=== PATIENT | female | born 1995 | race Two or more races ===

== ENCOUNTER 2017-01-09 06:56 | Emergency (ER) | payer OTHER ==
[2017-01-09 07:27] VITALS: BMI 27.4
[2017-01-09] MEDS ORDERED: FAMOTIDINE 20 MG/50 ML IVPB 50 ML IVPB ONE ×2 (07:34→07:41)
[2017-01-09] MEDS ORDERED: MAG HYDROX/AL HYDROX/SIMETH 355 ML ORAL.SUSP PO ONE (07:34)
[2017-01-09] MEDS ORDERED: MAG HYDROX/AL HYDROX/SIMETH 30 ML UNIT-DOSE CUP ONE (07:40)
--- NOTE | 2017-01-09 07:54 | PDOC ---
History of Present Illness - General Chief Complaint: Pain Stated Complaint: ABDOMINAL PAIN Time Seen by Provider: 01/09/17 07:28 History Source: Patient - History of Present Illness Abdominal Pain Onset Location: reports: other (upper abd) Pain Radiation: reports: no radiation Past History - Past Medical History Allergies/Adverse Reactions: Allergies Allergy/AdvReac Type Severity Reaction Status Date / Time No Known Allergies Allergy Verified 01/09/17 07:22 Home Medications: Ambulatory Orders Famotidine [Pepcid] 20 mg PO BID #14 tablet 01/09/17 Mag Hydrox/Al Hydrox/Simeth [MAALOX *SUSPENSION* -] 30 ml PO Q6H #1 bottle 01/09 Other medical history: Denies - Immunization History Immunization Up to Date: Yes - Psycho/Social/Smoking Cessation Hx Suicidal Ideation: No Smoking History: Never smoked Have you smoked in the past 12 months: No Information on smoking cessation initiated: No Hx Alcohol Use: No Drug/Substance Use Hx: No Substance Use Type: None Review of Systems - Review of Systems Constitutional: No: Chills, Fever Respiratory: No: Shortness of Breath Cardiac (ROS): No: Chest Pain ABD/GI: Yes: Nausea, Vomiting. No: Constipated, Diarrhea : No: Dysuria *Physical Exam - Vital Signs Last Vital Signs Temp Pulse Resp BP Pulse Ox 98.8 F 126 H 16 135/89 100 01/09/17 07:22 01/09/17 07:22 01/09/17 07:22 01/09/17 07:22 01/09/17 07:22 - Physical Exam General Appearance: Yes: Appropriately Dressed. No: Apparent Distress HEENT: positive: Normal Voice Neck: positive: Supple Respiratory/Chest: positive: Lungs Clear, Normal Breath Sounds. negative: Respiratory Distress Cardiovascular: positive: Regular Rate, S1, S2 Gastrointestinal/Abdominal: positive: Tender (to epigastrium, neg murpheys, no CVAT), Soft ED Treatment Course - LABORATORY CBC & Chemistry Diagram: 01/09/17 07:55 01/09/17 07:55 Medical Decision Making - Medical Decision Making 01/09/17 07:34 22-year-old obese female with no past medical history here with abdominal pain. Patient reports upper abdominal pain 1 month intermittent, sharp, worse when supine and with po intake. Patient complains of nausea, vomiting on 1 occasion and possibly 1 e/o loose stool this a.m. No bright red blood per rectum, melena , fever or chills. No history of kidney stones or gallstones. Patient states she is seeking medical care for the first time today because she noticed that abdomen is now bloated. Denies h/o similar episodes in past See exam Upper abd pain Possibly gastritis given HPI, less likely acute darcy or pancreatitis given duration of symptoms Tachy to 126 in ED w/ unremarkable exam otherwise -GI cocktail -IVF -labs -reassess 01/09/17 09:21 01/09/17 09:30 01/09/17 10:54 Heart rate 113 status post IV fluid. Patient reports feeling significantly better with meds. No dizziness, weakness, palpitations. CP or SOB. Do not suspect PE at this time given duration of symptoms for over a month. Will dc to maintain adequate hydration and take meds as directed. Reasons to return discussed with patient, otherwise, follow-up with GI and PMD 01/09/17 10:56 *DC/Admit/Observation/Transfer Diagnosis at time of Disposition: Epigastric pain - Discharge Dispostion Disposition: HOME Condition at time of disposition: Improved - Prescriptions Prescriptions: Mag Hydrox/Al Hydrox/Simeth [MAALOX *SUSPENSION* -] 30 ml PO Q6H #1 bottle Famotidine [Pepcid] 20 mg PO BID #14 tablet - Referrals Referrals: Don Minaya MD [Staff Physician] - - Patient Instructions Printed Discharge Instructions: Gastritis Additional Instructions: Maintain adequate hydration and take medications as prescribed. Please follow-up with Dr. Minaya of GI Please follow-up with your PMD
[2017-01-09 08:09] LABS: BASOPHIL 0.5 % (0-2.0); MEAN PLT VOLUME 8.8 fl (7.5-11.1)
[2017-01-09 08:14] LABS: EOSINOPHIL 0.5 % (0-4.5); MCH 25.4 pg (25.7-33.7); MCHC 32.4 g/dl (32.0-36.0); MEAN CELL VOLUME 78.4 fl (80-96); NEUTROPHILS 70.2 % (42.8-82.8); PLATELET COUNT 307 K/MM3 (134-434); RDW 14.8 % (11.6-15.6); WHITE BLOOD COUNT 11.8 K/mm3 (4.0-10.0)
[2017-01-09 08:35] LABS: ALBUMIN 4.1 g/dl (3.4-5.0); ALK PHOS 106 U/L (45-117); ANION GAP 8 (8-16); BILIRUBIN,TOTAL 0.6 mg/dL (0.2-1.0); CALCIUM 9.5 mg/dL (8.5-10.1); CO2 27 mmol/L (21-32); CREATININE 0.7 mg/dL (0.55-1.02); GLUCOSE,RANDOM 103 mg/dL (74-106); SGOT/AST 40 U/L (15-37); SGPT/ALT 77 U/L (12-78); TOT PROT 8.1 g/dl (6.4-8.2)
[2017-01-09] MEDS ORDERED: RANITIDINE HCL 150 MG TABLET (FP) PO ONE (08:59)
[2017-01-09] MEDS ORDERED: RANITIDINE HCL 150 MG TABLET (FP) ONE (09:04)
[2017-01-09] MEDS ORDERED: SODIUM CHLORIDE 1,000 ML IV STA (09:18)
[2017-01-09 10:56] VITALS: BP 121/87; PULSE 113; TEMP 98.3
== END 2017-01-09 11:03 | disposition home or self-care (01) ==
LOC: JER 06:56
PROC: 3E0337Z Introduction of Electrolytic and Water Balance Substance into Peripheral Vein, Percutaneous Approach (ICD-10-PCS; principal; 2017-01-09)
DX: K29.60 Other gastritis without bleeding (principal)
CPT/HCPCS: 36415; 80053; 83690; 84703; 85025; 99282-25

== ENCOUNTER 2022-04-25 06:01 | Inpatient (IN) | payer OTHER ==
[~2022-04-25 06:01] MED LIST: BUPIVACAINE HCL/PF 0.25% (2.5MG/ML) 10 ML VIAL IJ ONE
[2022-04-25] MEDS ORDERED: ACETAMINOPHEN 1000 MG/100 ML BAG IVPB ONE (07:59)
[2022-04-25] MEDS ORDERED: ACETAMINOPHEN INJECTION 100 ML IVPB ONE (08:00)
[2022-04-25 08:54] LABS: BASO % 0.5 % (0-2.0); EOS % 0.4 % (0-4.5); HEMOGLOBIN 11.8 GM/dL (10.7-15.3); MCH 23.9 pg (25.7-33.7); MCHC 31.2 g/dl (32.0-36.0); MEAN CELL VOLUME 76.5 fl (80-96); MEAN PLT VOLUME 9.1 fl (7.5-11.1); MONO % 3.8 % (3.8-10.2); NEUT % 71.3 % (42.8-82.8); PLATELET COUNT 338 10^3/uL (134-434); RBC 4.97 M/mm3 (3.60-5.2); RDW 14.6 % (11.6-15.6); WHITE BLOOD COUNT 14.8 K/mm3 (4.0-10.0)
[2022-04-25 09:25] LABS: ALBUMIN 4.3 g/dl (3.4-5.0); BLOOD UREA NITROGEN 11.1 mg/dL (7-18); CALCIUM 9.6 mg/dL (8.5-10.1)
[2022-04-25 09:27] LABS: CREATININE 0.7 mg/dL (0.55-1.3)
[2022-04-25 09:29] LABS: BILIRUBIN,TOTAL 0.5 mg/dL (0.2-1); TOT PROT 8.4 g/dl (6.4-8.2)
[2022-04-25 09:39] LABS: URINE APPEARANCE CLEAR; URINE BILIRUBIN NEGATIVE (NEGATIVE); URINE COLOR YELLOW; URINE GLUCOSE (UA) NEGATIVE (NEGATIVE); URINE KETONE NEGATIVE (NEGATIVE); URINE LEUK ESTERASE NEGATIVE (NEGATIVE); URINE NITRITE NEGATIVE (NEGATIVE); URINE PROTEIN TRACE (NEGATIVE); URINE UROBILINOGEN 0.2 mg/dL (0.2-1.0)
[2022-04-25 09:42] LABS: HCG,QUALITATIVE URINE Negative
[2022-04-25] MEDS ORDERED: LACTATED RINGERS SOLUTION 1,000 ML/1,000 ML INFUS.BAG IV SCH (10:15)
[2022-04-25] MEDS ORDERED: KETOROLAC TROMETHAMINE 15 MG/ML VIAL IVPUSH PRN (10:32)
[2022-04-25] MEDS ORDERED: ONDANSETRON 4 MG/2 ML VIAL IVPUSH PRN ×2 (10:34→19:33)
[2022-04-25] MEDS ORDERED: LACTATED RINGERS SOLUTION 1,000 ML IV SCH (10:45)
[2022-04-25] MEDS ORDERED: BUPIVACAINE HCL/PF 0.25% (2.5MG/ML) 10 ML VIAL ONE (12:42)
[2022-04-25] MEDS ORDERED: IBUPROFEN 800 MG/8 ML IJ IVPB PRN ×2 (12:56→19:33)
[2022-04-25] MEDS ORDERED: LIDOCAINE HCL/PF 2% SDV 5ML VIAL ONE (13:13)
[2022-04-25] MEDS ORDERED: PROPOFOL 40 ML ONE (13:14)
[2022-04-25] MEDS ORDERED: FENTANYL CITRATE/PF 50 MCG/ML VIAL ONE ×4 (13:14→15:11)
[2022-04-25] MEDS ORDERED: MIDAZOLAM HCL 2 MG/2 ML SINGLE DOSE VIAL ONE (13:14)
[2022-04-25] MEDS ORDERED: ROCURONIUM BROMIDE 50 MG/5 ML SYRINGE ONE ×2 (13:14→14:48)
[2022-04-25] MEDS ORDERED: ceFAZolin SODIUM 1 GM VIAL ONE (13:54)
[2022-04-25] MEDS ORDERED: ceFAZolin SODIUM 1 GM VIAL IVPB ONE (13:56)
[2022-04-25] MEDS ORDERED: ONDANSETRON 4 MG/2 ML VIAL ONE (14:18)
[2022-04-25] MEDS ORDERED: DEXAMETHASONE SOD PHOSPHATE 4 MG/1 ML VIAL ONE (14:18)
[2022-04-25] MEDS ORDERED: HYDROmorphone HCl 2 MG/ML VIAL ONE (15:56)
[2022-04-25] MEDS ORDERED: GLYCOPYRROLATE 0.2 MG/1 ML VIAL ONE (17:35)
[2022-04-25] MEDS ORDERED: NEOSTIGMINE METHYLSULFATE 0.5 MG/1 ML - 10 ML MDV ONE (17:35)
[2022-04-25] MEDS ORDERED: PIPERACILLIN/TAZOB 3.375 GM 3.375 GM in DEXTROSE 5%-WATER - 50 ML IVPB ONE (17:59)
[2022-04-25] MEDS ORDERED: ACETAMINOPHEN 1000 MG/100 ML BAG IVPB PRN (18:00)
[2022-04-25] MEDS ORDERED: KETOROLAC TROMETHAMINE 30 MG/1 ML VIAL IVPUSH PRN (18:02)
[2022-04-25] MEDS ORDERED: HYDROmorphone *PCA* 10MG/50ML DISP.SYRIN PCA SCH (18:15)
[2022-04-25] MEDS: SODIUM CHLORIDE 1,000 ML IV SCH (19:00)
[2022-04-25] MEDS ORDERED: HYDROmorphone *PCA* 10MG/50ML DISP.SYRIN PCA ONE ×2 (20:33)
[2022-04-25] MEDS: FAMOTIDINE 20 MG/50 ML IVPB 20 MG/50 ML MG IVPB SCH (21:52)
[2022-04-25] MEDS: HEPARIN NA (PORCINE) 5,000 UNITS/ML 1ML VIAL SQ SCH (21:52)
[2022-04-25 23:34] VITALS: BMI 36.7
[2022-04-26] MEDS: PIPERACILLIN/TAZOB 3.375 GM 3.375 GM in DEXTROSE 5%-WATER - 50 ML IVPB SCH ×2 (03:10→11:26)
[2022-04-26] MEDS: HEPARIN NA (PORCINE) 5,000 UNITS/ML 1ML VIAL SQ SCH ×3 (06:33→21:57)
[2022-04-26 10:06] LABS: BASO % 0.3 % (0-2.0); HEMATOCRIT 28.9 % (32.4-45.2); HEMOGLOBIN 8.8 GM/dL (10.7-15.3); MCH 23.5 pg (25.7-33.7); MCHC 30.6 g/dl (32.0-36.0); MEAN CELL VOLUME 76.8 fl (80-96); MEAN PLT VOLUME 8.8 fl (7.5-11.1); MONO % 8.5 % (3.8-10.2); NEUT % 70.2 % (42.8-82.8); PLATELET COUNT 268 10^3/uL (134-434); RBC 3.76 M/mm3 (3.60-5.2); RDW 14.7 % (11.6-15.6)
[2022-04-26 10:25] LABS: BLOOD UREA NITROGEN 9.3 mg/dL (7-18); MAGNESIUM 2.3 mg/dL (1.8-2.4)
[2022-04-26 10:28] LABS: BILIRUBIN,DIRECT 0.3 mg/dL (0.0-0.2); CREATININE 0.6 mg/dL (0.55-1.3); PHOSPHOROUS 3.4 mg/dL (2.5-4.9)
[2022-04-26 10:30] LABS: BILIRUBIN,TOTAL 0.8 mg/dL (0.2-1)
[2022-04-26 10:40] LABS: ALBUMIN 2.8 g/dl (3.4-5.0); TOT PROT 5.9 g/dl (6.4-8.2)
[2022-04-26] MEDS: FAMOTIDINE 20 MG/50 ML IVPB 20 MG/50 ML MG IVPB SCH ×2 (11:26→21:57)
[2022-04-26] MEDS ORDERED: oxyCODONE HCL 5 MG TABLET PO PRN (11:27)
[2022-04-26] MEDS: SODIUM CHLORIDE 1,000 ML IV SCH (16:59)
[2022-04-26] MEDS: DOCUSATE SODIUM 100 MG CAPSULE (FP) PO SCH (21:57)
[2022-04-27] MEDS: HEPARIN NA (PORCINE) 5,000 UNITS/ML 1ML VIAL SQ SCH ×3 (07:03→21:47)
[2022-04-27] MEDS: FAMOTIDINE 20 MG/50 ML IVPB 20 MG/50 ML MG IVPB SCH ×2 (09:26→21:35)
[2022-04-27] MEDS: oxyCODONE HCL 5 MG TABLET PO PRN ×3 (09:29→21:35)
[2022-04-27] MEDS ORDERED: SIMETHICONE 80 MG TAB.CHEW (FP) PO PRN (11:10)
[2022-04-27 12:50] LABS: BASO % 0.5 % (0-2.0); EOS % 0.6 % (0-4.5); HEMATOCRIT 31.1 % (32.4-45.2); HEMOGLOBIN 9.7 GM/dL (10.7-15.3); LYMPH % 31.3 % (8-40); MCH 23.7 pg (25.7-33.7); MCHC 31.1 g/dl (32.0-36.0); MEAN CELL VOLUME 76.2 fl (80-96); MEAN PLT VOLUME 8.7 fl (7.5-11.1); MONO % 6.6 % (3.8-10.2); PLATELET COUNT 258 10^3/uL (134-434); RBC 4.09 M/mm3 (3.60-5.2); RDW 14.6 % (11.6-15.6); WHITE BLOOD COUNT 14.9 K/mm3 (4.0-10.0)
[2022-04-27 13:09] LABS: ALBUMIN 3.3 g/dl (3.4-5.0); BLOOD UREA NITROGEN 5.2 mg/dL (7-18); CALCIUM 8.6 mg/dL (8.5-10.1); MAGNESIUM 2.3 mg/dL (1.8-2.4)
[2022-04-27 13:12] LABS: CREATININE 0.5 mg/dL (0.55-1.3)
[2022-04-27 13:14] LABS: BILIRUBIN,TOTAL 0.6 mg/dL (0.2-1); TOT PROT 6.8 g/dl (6.4-8.2)
[2022-04-27] MEDS ORDERED: POTASSIUM CHLORIDE TABS 20 MEQ TABLET.ER (FP) PO ONE (15:31)
[2022-04-27] MEDS: CEFAZOLIN 1 GM in DEXTROSE 5%-WATER - 50 ML IVPB SCH (16:33)
[2022-04-27] MEDS: DOCUSATE SODIUM 100 MG CAPSULE (FP) PO SCH (21:34)
[2022-04-27] MEDS: SODIUM CHLORIDE 1,000 ML IV SCH (21:36)
[2022-04-28] MEDS: CEFAZOLIN 1 GM in DEXTROSE 5%-WATER - 50 ML IVPB SCH ×3 (00:28→17:18)
[2022-04-28] MEDS: SODIUM CHLORIDE 1,000 ML IV SCH ×2 (00:31→18:31)
[2022-04-28] MEDS: HEPARIN NA (PORCINE) 5,000 UNITS/ML 1ML VIAL SQ SCH ×3 (06:27→22:22)
[2022-04-28] MEDS: FAMOTIDINE 20 MG/50 ML IVPB 20 MG/50 ML MG IVPB SCH ×2 (09:54→22:22)
[2022-04-28 10:10] LABS: BASO % 0.6 % (0-2.0); EOS % 0.6 % (0-4.5); HEMATOCRIT 32.5 % (32.4-45.2); HEMOGLOBIN 10.1 GM/dL (10.7-15.3); LYMPH % 21.1 % (8-40); MCH 23.8 pg (25.7-33.7); MCHC 31.2 g/dl (32.0-36.0); MEAN CELL VOLUME 76.5 fl (80-96); MEAN PLT VOLUME 8.2 fl (7.5-11.1); MONO % 5.6 % (3.8-10.2); NEUT % 72.1 % (42.8-82.8); PLATELET COUNT 278 10^3/uL (134-434); RBC 4.25 M/mm3 (3.60-5.2); RDW 14.3 % (11.6-15.6); WHITE BLOOD COUNT 13.5 K/mm3 (4.0-10.0)
[2022-04-28] MEDS ORDERED: POTASSIUM CHLORIDE TABS 20 MEQ TABLET.ER (FP) PO ONE (10:39)
[2022-04-28 10:46] LABS: ALBUMIN 3.3 g/dl (3.4-5.0); CALCIUM 8.6 mg/dL (8.5-10.1); MAGNESIUM 2.4 mg/dL (1.8-2.4)
[2022-04-28 10:47] LABS: BLOOD UREA NITROGEN 6.7 mg/dL (7-18)
[2022-04-28 10:50] LABS: CREATININE 0.6 mg/dL (0.55-1.3)
[2022-04-28] MEDS: POLYETHYLENE GLYCOL (HEALTHYLAX) 3350 17 GM PACKET PO SCH ×2 (13:47→22:22)
[2022-04-28] MEDS: oxyCODONE HCL 5 MG TABLET PO PRN (19:47)
[2022-04-28] MEDS: DOCUSATE SODIUM 100 MG CAPSULE (FP) PO SCH (22:21)
[2022-04-29] MEDS: CEFAZOLIN 1 GM in DEXTROSE 5%-WATER - 50 ML IVPB SCH ×3 (00:28→16:44)
[2022-04-29] MEDS: HEPARIN NA (PORCINE) 5,000 UNITS/ML 1ML VIAL SQ SCH ×3 (06:36→22:30)
[2022-04-29] MEDS ORDERED: SODIUM CHLORIDE 1,000 ML IV STA (09:14)
[2022-04-29] MEDS: FAMOTIDINE 20 MG/50 ML IVPB 20 MG/50 ML MG IVPB SCH ×2 (09:16→22:30)
[2022-04-29] MEDS: POLYETHYLENE GLYCOL (HEALTHYLAX) 3350 17 GM PACKET PO SCH ×2 (09:16→22:30)
[2022-04-29 11:10] LABS: BASO % 0.3 % (0-2.0); EOS % 0.5 % (0-4.5); HEMATOCRIT 32.2 % (32.4-45.2); HEMOGLOBIN 10.1 GM/dL (10.7-15.3); LYMPH % 21.8 % (8-40); MCH 24.2 pg (25.7-33.7); MCHC 31.4 g/dl (32.0-36.0); MEAN CELL VOLUME 76.9 fl (80-96); MONO % 7.2 % (3.8-10.2); NEUT % 70.2 % (42.8-82.8); PLATELET COUNT 311 10^3/uL (134-434); RBC 4.19 M/mm3 (3.60-5.2); RDW 14.7 % (11.6-15.6); WHITE BLOOD COUNT 15.7 K/mm3 (4.0-10.0)
[2022-04-29 11:44] LABS: ALBUMIN 3.1 g/dl (3.4-5.0); BLOOD UREA NITROGEN 5.6 mg/dL (7-18); CALCIUM 8.3 mg/dL (8.5-10.1)
[2022-04-29 11:47] LABS: CREATININE 0.5 mg/dL (0.55-1.3)
[2022-04-29 11:48] LABS: BILIRUBIN,TOTAL 0.9 mg/dL (0.2-1)
[2022-04-29 11:49] LABS: TOT PROT 6.6 g/dl (6.4-8.2)
[2022-04-29] MEDS: POTASSIUM CHLORIDE TABS 20 MEQ TABLET.ER (FP) PO SCH ×2 (13:33→18:27)
[2022-04-29] MEDS: DOCUSATE SODIUM 100 MG CAPSULE (FP) PO SCH (22:30)
[2022-04-30] MEDS: CEFAZOLIN 1 GM in DEXTROSE 5%-WATER - 50 ML IVPB SCH ×3 (00:13→16:30)
[2022-04-30] MEDS: HEPARIN NA (PORCINE) 5,000 UNITS/ML 1ML VIAL SQ SCH ×2 (06:23→13:34)
[2022-04-30] MEDS: FAMOTIDINE 20 MG/50 ML IVPB 20 MG/50 ML MG IVPB SCH (09:51)
[2022-04-30] MEDS: POLYETHYLENE GLYCOL (HEALTHYLAX) 3350 17 GM PACKET PO SCH (09:52)
[2022-04-30 09:55] LABS: BASO % 0.5 % (0-2.0); EOS % 1.7 % (0-4.5); HEMATOCRIT 32.3 % (32.4-45.2); MCH 23.8 pg (25.7-33.7); MCHC 30.9 g/dl (32.0-36.0); MEAN PLT VOLUME 8.5 fl (7.5-11.1); MONO % 6.9 % (3.8-10.2); NEUT % 58.9 % (42.8-82.8); PLATELET COUNT 342 10^3/uL (134-434); RDW 15.2 % (11.6-15.6); WHITE BLOOD COUNT 14.1 K/mm3 (4.0-10.0)
[2022-04-30 10:31] LABS: CALCIUM 9.2 mg/dL (8.5-10.1)
[2022-04-30 10:32] LABS: ALBUMIN 3.1 g/dl (3.4-5.0)
[2022-04-30 10:35] LABS: CREATININE 0.6 mg/dL (0.55-1.3)
[2022-04-30 10:36] LABS: TOT PROT 6.8 g/dl (6.4-8.2)
[2022-04-30 14:43] VITALS: BP 120/77; PULSE 100; RESP 20; TEMP 98.6
== END 2022-04-30 18:01 | disposition home or self-care (01) | DRG 262 ==
LOC: JER 06:01 → JERBED 10:01 → J8W 20:56
PROVIDERS: ADMIT Internal Medicine; ATTEND Nurse Practitioner Family
PROC: 0FJ44ZZ Inspection of Gallbladder, Percutaneous Endoscopic Approach (ICD-10-PCS; 2022-04-25)
PROC: 0FT40ZZ Resection of Gallbladder, Open Approach (ICD-10-PCS; principal; 2022-04-25 13:00)
DX: K80.10 Calculus of gallbladder with chronic cholecystitis without obstruction (principal); E78.5 Hyperlipidemia, unspecified; E66.9 Obesity, unspecified; Z68.36 Body mass index [BMI] 36.0-36.9, adult; R11.2 Nausea with vomiting, unspecified; G89.18 Other acute postprocedural pain; D72.829 Elevated white blood cell count, unspecified; Z53.31 Laparoscopic surgical procedure converted to open procedure
CPT/HCPCS: 36415; 74018-TC-FY; 76705-TC; 80053; 80076; 81003; 83690; 83735; 84100; 84703; 85025; 87086; 88304-TC; 93005; 93010; 94010; 94760; 97116-GP; 97161-GP; 99285-25; C9803-CS; J1644; U0003; U0005

== ENCOUNTER 2022-05-03 12:45 | Inpatient (IN) | payer OTHER ==
[~2022-05-03 12:45] MED LIST changes: -BUPIVACAINE HCL/PF 0.25% (2.5MG/ML) 10 ML VIAL IJ ONE; +PIPERACILLIN/TAZOB 3.375 GM 3.375 GM in DEXTROSE 5%-WATER - 50 ML IVPB SCH
[2022-05-03] MEDS ORDERED: SODIUM CHLORIDE 1,000 ML IV STA (13:46)
[2022-05-03] MEDS ORDERED: ACETAMINOPHEN 1000 MG/100 ML BAG IVPB ONE ×2 (13:46→20:32)
[2022-05-03] MEDS ORDERED: ACETAMINOPHEN INJECTION 100 ML IVPB ONE ×2 (13:58→21:03)
[2022-05-03 15:34] LABS: BASO % 0.4 % (0-2.0); EOS % 0.2 % (0-4.5); HEMATOCRIT 33.7 % (32.4-45.2); HEMOGLOBIN 10.5 GM/dL (10.7-15.3); LYMPH % 13.8 % (8-40); MCH 23.8 pg (25.7-33.7); MCHC 31.2 g/dl (32.0-36.0); MEAN CELL VOLUME 76.3 fl (80-96); MEAN PLT VOLUME 8.4 fl (7.5-11.1); MONO % 4.8 % (3.8-10.2); NEUT % 80.8 % (42.8-82.8); PLATELET COUNT 421 10^3/uL (134-434); RBC 4.42 M/mm3 (3.60-5.2); RDW 14.7 % (11.6-15.6); WHITE BLOOD COUNT 16.8 K/mm3 (4.0-10.0)
[2022-05-03 15:46] LABS: INR 1.1 (0.83-1.09); PROTHROMBIN TIME (PATIENT) 12.7 SEC (9.7-13.0)
[2022-05-03 15:49] LABS: ACTIVATED PTT 28.3 SECONDS (25.2-36.5)
[2022-05-03 15:50] LABS: CALCIUM 9.5 mg/dL (8.5-10.1)
[2022-05-03 15:51] LABS: ALBUMIN 3.7 g/dl (3.4-5.0); BLOOD UREA NITROGEN 7.2 mg/dL (7-18)
[2022-05-03 15:54] LABS: CREATININE 0.6 mg/dL (0.55-1.3)
[2022-05-03 15:55] LABS: BILIRUBIN,TOTAL 0.7 mg/dL (0.2-1)
[2022-05-03 15:56] LABS: TOT PROT 7.7 g/dl (6.4-8.2)
[2022-05-03] MEDS ORDERED: PIPERACILLIN/TAZOB 3.375 GM 4.5 GM in DEXTROSE 5%-WATER - 50 ML IVPB ONE (19:48)
[2022-05-03 20:06] LABS: URINE APPEARANCE CLEAR; URINE BILIRUBIN NEGATIVE (NEGATIVE); URINE COLOR RED; URINE GLUCOSE (UA) NEGATIVE (NEGATIVE); URINE KETONE NEGATIVE (NEGATIVE); URINE LEUK ESTERASE 3+ (NEGATIVE); URINE NITRITE NEGATIVE (NEGATIVE); URINE PROTEIN 1+ (NEGATIVE); URINE UROBILINOGEN 0.2 mg/dL (0.2-1.0)
[2022-05-03] MEDS: SODIUM CHLORIDE 1,000 ML IV SCH (20:18)
[2022-05-03] MEDS ORDERED: PIPERACILLIN/TAZOB 4.5 GM 4.5 GM/100 ML BAG IVPB ONE (20:22)
[2022-05-03] MEDS ORDERED: SODIUM CHLORIDE 1,000 ML IV SCH (20:45)
[2022-05-03 23:32] LABS: EPI CELLS 16.8 /uL (0-25.1); URINE RBC 173.2 /uL (0-23.9); URINE WBC 244.4 /uL (0-25.8)
[2022-05-03 23:33] LABS: HYALINE CASTS 9.04 /uL (0-3.1); URINE BACTERIA 3919.2 /uL (0-1359)
[2022-05-04] MEDS ORDERED: ACETAMINOPHEN INJECTION 100 ML IVPB ONE ×3 (00:26→17:55)
[2022-05-04] MEDS: ACETAMINOPHEN 1000 MG/100 ML BAG IVPB PRN ×3 (00:30→17:58)
[2022-05-04] MEDS ORDERED: HYDROmorphone HCl 2 MG/ML VIAL IVPUSH ONE (01:03)
[2022-05-04] MEDS ORDERED: HYDROmorphone HCL CARPU-JECT 2 MG/1 ML DISP.SYRIN IVPUSH ONE (01:03)
[2022-05-04] MEDS ORDERED: HYDROmorphone HCl 2 MG/ML VIAL ONE (02:39)
[2022-05-04] MEDS ORDERED: PIPERACILLIN/TAZOB 3.375 GM 3.375 GM/50 ML BAG IVPB ONE ×2 (04:09→17:13)
[2022-05-04] MEDS: PIPERACILLIN/TAZOB 3.375 GM 3.375 GM in DEXTROSE 5%-WATER - 50 ML IVPB SCH ×4 (04:18→23:23)
[2022-05-04 08:27] LABS: BASO % 0.6 % (0-2.0); EOS % 0.7 % (0-4.5); HEMOGLOBIN 9.7 GM/dL (10.7-15.3); LYMPH % 21.8 % (8-40); MCH 23.8 pg (25.7-33.7); MCHC 31.4 g/dl (32.0-36.0); MEAN PLT VOLUME 8.2 fl (7.5-11.1); MONO % 5.8 % (3.8-10.2); NEUT % 71.1 % (42.8-82.8); PLATELET COUNT 365 10^3/uL (134-434); RBC 4.08 M/mm3 (3.60-5.2); RDW 14.8 % (11.6-15.6)
[2022-05-04 08:35] LABS: INR 1.14 (0.83-1.09); PROTHROMBIN TIME (PATIENT) 13.1 SEC (9.7-13.0)
[2022-05-04 09:01] LABS: BLOOD UREA NITROGEN 5.4 mg/dL (7-18); CALCIUM 8.8 mg/dL (8.5-10.1); MAGNESIUM 2.5 mg/dL (1.8-2.4)
[2022-05-04 09:02] LABS: ALBUMIN 3.3 g/dl (3.4-5.0)
[2022-05-04 09:04] LABS: PHOSPHOROUS 4.3 mg/dL (2.5-4.9)
[2022-05-04 09:05] LABS: BILIRUBIN,TOTAL 0.8 mg/dL (0.2-1); CREATININE 0.6 mg/dL (0.55-1.3); TOT PROT 6.9 g/dl (6.4-8.2)
[2022-05-04 19:04] VITALS: BMI 37.5
[2022-05-04] MEDS: SODIUM CHLORIDE 1,000 ML IV SCH (22:01)
[2022-05-05] MEDS: SODIUM CHLORIDE 1,000 ML IV SCH ×3 (05:55→20:47)
[2022-05-05] MEDS: PIPERACILLIN/TAZOB 3.375 GM 3.375 GM in DEXTROSE 5%-WATER - 50 ML IVPB SCH ×3 (06:12→21:20)
[2022-05-05] MEDS: ACETAMINOPHEN 1000 MG/100 ML BAG IVPB PRN ×2 (09:17→20:15)
[2022-05-05] MEDS ORDERED: FLU VACC QS2022-23(6MOS UP)/PF 60 MCG/0.5 ML SYRINGE IM ONE (10:00)
[2022-05-05 10:06] LABS: BASO % 0.6 % (0-2.0); EOS % 1.4 % (0-4.5); HEMATOCRIT 28.9 % (32.4-45.2); HEMOGLOBIN 8.8 GM/dL (10.7-15.3); LYMPH % 20.8 % (8-40); MCH 23.4 pg (25.7-33.7); MCHC 30.6 g/dl (32.0-36.0); MEAN CELL VOLUME 76.5 fl (80-96); MEAN PLT VOLUME 8.2 fl (7.5-11.1); MONO % 6.4 % (3.8-10.2); NEUT % 70.8 % (42.8-82.8); PLATELET COUNT 368 10^3/uL (134-434); RBC 3.78 M/mm3 (3.60-5.2); RDW 14.8 % (11.6-15.6); WHITE BLOOD COUNT 12.5 K/mm3 (4.0-10.0)
[2022-05-05 10:26] LABS: BLOOD UREA NITROGEN 4.6 mg/dL (7-18)
[2022-05-05 10:27] LABS: CALCIUM 8.4 mg/dL (8.5-10.1)
[2022-05-05 10:28] LABS: CREATININE 0.5 mg/dL (0.55-1.3); MAGNESIUM 2.1 mg/dL (1.8-2.4)
[2022-05-05 10:29] LABS: PHOSPHOROUS 2.8 mg/dL (2.5-4.9)
[2022-05-05 10:30] LABS: BILIRUBIN,TOTAL 0.9 mg/dL (0.2-1); TOT PROT 6.4 g/dl (6.4-8.2)
[2022-05-05] MEDS ORDERED: POTASSIUM CHLORIDE TABS 20 MEQ TABLET.ER (FP) PO SCH (14:00)
[2022-05-05] MEDS ORDERED: POTASSIUM CHLORIDE TABS 20 MEQ TABLET.ER (FP) PO ONE (14:15)
[2022-05-06] MEDS: PIPERACILLIN/TAZOB 3.375 GM 3.375 GM in DEXTROSE 5%-WATER - 50 ML IVPB SCH ×3 (06:04→21:32)
[2022-05-06] MEDS ORDERED: ACETAMINOPHEN 1000 MG/100 ML BAG IVPB ONE (06:25)
[2022-05-07] MEDS: PIPERACILLIN/TAZOB 3.375 GM 3.375 GM in DEXTROSE 5%-WATER - 50 ML IVPB SCH (06:31)
[2022-05-07 09:05] LABS: BASO % 0.5 % (0-2.0); HEMOGLOBIN 9.1 GM/dL (10.7-15.3); LYMPH % 17.3 % (8-40); MCH 23.6 pg (25.7-33.7); MCHC 31.4 g/dl (32.0-36.0); MEAN PLT VOLUME 8.1 fl (7.5-11.1); MONO % 6.2 % (3.8-10.2); PLATELET COUNT 452 10^3/uL (134-434); RBC 3.87 M/mm3 (3.60-5.2); RDW 14.8 % (11.6-15.6); WHITE BLOOD COUNT 13.2 K/mm3 (4.0-10.0)
[2022-05-07 09:27] LABS: CALCIUM 8.5 mg/dL (8.5-10.1)
[2022-05-07 09:28] LABS: BLOOD UREA NITROGEN 5.7 mg/dL (7-18); MAGNESIUM 2.3 mg/dL (1.8-2.4)
[2022-05-07 09:31] LABS: CREATININE 0.5 mg/dL (0.55-1.3); PHOSPHOROUS 3.3 mg/dL (2.5-4.9)
[2022-05-07] MEDS ORDERED: ACETAMINOPHEN 325 MG TABLET (FP) PO PRN ×2 (09:31→14:30)
[2022-05-07 09:33] LABS: BILIRUBIN,TOTAL 1.2 mg/dL (0.2-1); TOT PROT 6.6 g/dl (6.4-8.2)
[2022-05-07] MEDS ORDERED: CYCLOBENZAPRINE HCL 5 MG TABLET PO ONE (11:00)
[2022-05-07] MEDS: LIDOCAINE 5% TOPICAL PATCH TP SCH (11:07)
[2022-05-07] MEDS ORDERED: CYCLOBENZAPRINE HCL 5 MG TABLET PO PRN (14:29)
[2022-05-07] MEDS ORDERED: hydrOXYzine PAMOATE 25 MG CAPSULE (FP) PO PRN (14:30)
[2022-05-07] MEDS ORDERED: LIDOCAINE PATCH REMOVAL MC SCH (22:00)
[2022-05-08 09:44] LABS: BASO % 0.7 % (0-2.0); HEMATOCRIT 30.2 % (32.4-45.2); HEMOGLOBIN 9.4 GM/dL (10.7-15.3); LYMPH % 18.2 % (8-40); MCH 23.6 pg (25.7-33.7); MCHC 31.1 g/dl (32.0-36.0); MEAN CELL VOLUME 75.9 fl (80-96); MEAN PLT VOLUME 7.9 fl (7.5-11.1); MONO % 5.7 % (3.8-10.2); NEUT % 72.4 % (42.8-82.8); PLATELET COUNT 492 10^3/uL (134-434); RBC 3.98 M/mm3 (3.60-5.2); RDW 14.8 % (11.6-15.6); WHITE BLOOD COUNT 12.5 K/mm3 (4.0-10.0)
[2022-05-08] MEDS: LIDOCAINE 5% TOPICAL PATCH TP SCH (09:49)
[2022-05-08 12:54] LABS: ALBUMIN 3.3 g/dl (3.4-5.0); BLOOD UREA NITROGEN 7.2 mg/dL (7-18); CALCIUM 8.8 mg/dL (8.5-10.1); CREATININE 0.6 mg/dL (0.55-1.3)
[2022-05-08 13:34] LABS: LACTIC ACID 2.5 mmol/L (0.4-2.0)
[2022-05-08] MEDS ORDERED: LACTATED RINGERS SOLUTION 1000 ML INFUS.BAG IV ONE (14:23)
[2022-05-08 16:09] VITALS: BP 122/62; PULSE 102; RESP 18; TEMP 98.4
== END 2022-05-08 18:24 | disposition home or self-care (01) | DRG 861 ==
LOC: JER 12:45 → JERBED 20:10 → J7W 05-04 18:29
PROVIDERS: ADMIT Internal Medicine; ATTEND Internal Medicine
DX: G89.18 Other acute postprocedural pain (principal); N39.0 Urinary tract infection, site not specified; D72.829 Elevated white blood cell count, unspecified; R10.12 Left upper quadrant pain; D64.9 Anemia, unspecified; M25.512 Pain in left shoulder; E66.9 Obesity, unspecified; Z68.37 Body mass index [BMI] 37.0-37.9, adult; E78.5 Hyperlipidemia, unspecified; K63.89 Other specified diseases of intestine; B96.20 Unspecified Escherichia coli [E. coli] as the cause of diseases classified elsewhere; R00.0 Tachycardia, unspecified
CPT/HCPCS: 0241U-QW; 36415; 71046-TC-FY; 71275-TC; 73030-TC-LT-FY; 74177-TC; 80053; 81003; 82728; 82746; 83540; 83550; 83605; 83735; 84100; 84443; 84484; 84703; 85025; 85610; 85730; 86850; 86900; 86901; 87040; 87086; 87186; 93005; 93010; 93306-TC; 99285-25; G0008; Q2036; Q9967